=== PATIENT | female | born 1950 | race Caucasian/White ===

== ENCOUNTER 2017-10-09 17:38 | Emergency (ER) | payer OTHER ==
[~2017-10-09] VITALS: Ht 162.6 cm; Wt 88.9 kg
[~2017-10-09 17:38] MED LIST: AMIT25 PO; ASPI325; ASPI325 PO; ATOR40TA PO; BUDE6HFA INH; CHOL10002 PO; ESCI10 PO; ESCI20 PO; HYDR1TAB94 PO; MULTI VITAMIN1 EACH PO; OMEPRAZOLE MAGN20 MG PO; VENL75ER PO; VITAMIN B122500 MC1 PO
[2017-10-09 18:32] LABS: BASOPHILS ABSOLUTE AUTO 0.06 K/mm3 (0.00-0.23); BASOPHILS PERCENT AUTO 1 % (0-2); EOSINOPHILS ABSOLUTE AUTO 0.07 K/mm3 (0.00-0.68); EOSINOPHILS PERCENT AUTO 1 % (0-6); Hematocrit 43.1 % (33.0-51.0); IMMATURE GRAN ABSOLUTE AUTO 0.06 K/mm3 (0.00-0.10); IMMATURE GRAN PERCENT AUTO 1 % (0-1); LYMPHOCYTES PERCENT AUTO 29 % (21-46); MONOCYTES ABSOLUTE AUTO 0.61 K/mm3 (0.16-1.47); MONOCYTES PERCENT AUTO 6 % (4-13); Mean Corpuscular HGB 30.4 pg (26.0-34.0); Mean Corpuscular HGB Conc 32.5 g/dL (31.5-36.5); Mean Corpuscular Volume 94 fL (80-100); Mean Platelet Volume 9.8 fL (9.1-12.4); NEUTROPHILS ABSOLUTE AUTO 5.96 K/mm3 (1.96-9.15); NEUTROPHILS PERCENT AUTO 62 % (41-73); Platelet Count 279 K/mm3 (150-400); RDW Coefficient Variation 13.6 % (11.7-14.2); RDW Standard Deviation 46.7 fL (35.1-46.3); White Blood Cell Count 9.56 K/mm3 (4.00-11.30)
[2017-10-09 18:49] LABS: Alanine Aminotransfer (ALT/SGP 40 U/L (12-78); Albumin, Blood 3.4 g/dL (3.4-5.0); Albumin/Globulin Ratio 0.9 (0.8-1.8); Alk Phos 100 U/L (50-136); Anion Gap 8 mmol/L (6-16); Aspartate Aminotrans (AST/SGOT 18 U/L (12-37); Bilirubin, Total 0.3 mg/dL (0.1-1.0); Blood Urea Nitrogen 11 mg/dL (8-24); CO2, Blood 27 mmol/L (21-32); Calcium, Blood 8.9 mg/dL (8.5-10.1); Chloride, Blood 106 mmol/L (98-108); Creatinine, Blood 0.78 mg/dL (0.40-1.00); Globulin, Blood 3.6 g/dL (2.2-4.0); Glomerular Filtration Rate >60 (60-); Glucose, Blood 138 mg/dL (70-99); Potassium, Blood 4.1 mmol/L (3.5-5.5); Sodium, Blood 141 mmol/L (136-145)
[2017-10-09 20:00] LABS: Source, Urine Clean Catch
[2017-10-09 20:03] LABS: Appearance, Urine Clear (Clear); Bilirubin, Urine Neg (Neg); Blood, Urine 1+ (Neg); Color, Urine Yellow (P-Yellow); Glucose Qualitative, Urine Neg (Neg); Ketones, Urine Neg (Neg); Leukocyte Esterase, Urine 1+ (Neg); Nitrite, Urine Neg (Neg); Protein, Urine Neg (Neg); Urobilinogen, Urine NORM (Normal)
[2017-10-09] MEDS ORDERED: ALBU90OI INH (20:08)
[2017-10-09] MEDS ORDERED: Norco 5-325 Ta1 EACH PO (20:08)
[2017-10-09 20:29] LABS: Bacteria Many /hpf; Red Blood Cells, Urine 0-2 /hpf (0-2); Squamous Epithelial Cells Not Seen /hpf (Few)
[2017-10-12] MEDS ORDERED: CEPH500 PO (08:02)
== END 2017-10-09 20:33 | disposition home or self-care (01) ==
LOC: ER 17:38
PROVIDERS: Emergency Medicine
DX: R10.12 Left upper quadrant pain (principal); R91.1 Solitary pulmonary nodule; J44.9 Chronic obstructive pulmonary disease, unspecified; E78.5 Hyperlipidemia, unspecified; F17.210 Nicotine dependence, cigarettes, uncomplicated; Z90.89 Acquired absence of other organs; Z90.49 Acquired absence of other specified parts of digestive tract; Z90.710 Acquired absence of both cervix and uterus
CPT/HCPCS: 36415; 74176; 80053; 81001; 83690; 85025; 87077; 87086; 87186; 93005; 93010; 99284

== ENCOUNTER → 2018-08-21 | Outpatient (CLI) | payer MEDICARE ==
[~2018-08-21] MED LIST changes: +ALBU90OI INH; +CEPH500 PO; +Norco 5-325 Ta1 EACH PO
[2018-08-21 11:35] LABS: Source, Urine Clean Catch
[2018-08-21 12:52] LABS: Bilirubin, Urine Neg (Neg); Blood, Urine Neg (Neg); Glucose Qualitative, Urine Neg (Neg); Ketones, Urine Neg (Neg); Leukocyte Esterase, Urine Neg (Neg); Nitrite, Urine Neg (Neg); Protein, Urine Neg (Neg); Specific Gravity, Urine 1.015 (1.003-1.022); Urobilinogen, Urine NORM (Normal)
[2018-08-21 13:30] LABS: Appearance, Urine Hazy (Clear); Bacteria Few /hpf; Color, Urine Yellow (P-Yellow); Mucus Light (0-Heavy); Red Blood Cells, Urine Not Seen /hpf (0-2); Squamous Epithelial Cells Many /hpf (Few); White Blood Cells, Urine Not Seen /hpf (0-5)
== END ==
LOC: LAB 11:01 → LAB SHORT 11:01
PROVIDERS: Obstetrics & Gynecology
DX: R30.0 Dysuria (principal)
CPT/HCPCS: 81001

== ENCOUNTER → 2018-10-01 | Outpatient (CLI) | payer MEDICARE ==
[2018-10-02 14:08] LABS: HPV 16 Negative (Negative); HPV 18 Negative (Negative); HPV OTHER HR TYPES Negative (Negative)
== END | disposition home or self-care (01) ==
LOC: LAB 12:33 → LAB SHORT 12:33
PROVIDERS: Obstetrics & Gynecology Gynecology
DX: Z91.89 Other specified personal risk factors, not elsewhere classified (principal)
CPT/HCPCS: 87624; G0123

== ENCOUNTER 2018-12-17 07:22 | Day surgery (SDC) | payer MEDICARE ==
[~2018-12-17] VITALS: Ht 162.6 cm; Wt 83.0 kg
--- NOTE | 2018-12-17 07:46 | NUR ---
Ambulatory in Day Surgery History, Chart, Medications and Allergies reviewed before start of procedure.Patient confirms NPO status and agrees with scheduled surgery. Patient States Post-Procedure ride home has been arranged. Lungs clear T/O to Auscultation.
[2018-12-17] MEDS ORDERED: DESV50 PO (08:05)
[2018-12-17] MEDS ORDERED: SUMA25 PO (08:06)
[2018-12-17] MEDS ORDERED: OXYB5 PO (08:07)
[2018-12-17] MEDS ORDERED: METF500 PO (08:08)
[2018-12-17] MEDS ORDERED: DOXE10 PO (08:09)
[2018-12-17] MEDS ORDERED: VARE1 PO (08:10)
--- NOTE | 2018-12-17 09:00 | NUR ---
DRINKING WATER. TOLERATING WELL.
--- NOTE | 2018-12-17 09:08 | NUR ---
Discharge instructions reviewed with patient. Patient verbalizes understanding. Copy given to patient to take home. Patient States Post-Procedure ride home has been arranged with [facility].
== END 2018-12-17 09:20 | disposition home or self-care (01) ==
LOC: ORSCMMR 07:22 → ORD 08:30 → ORSCMMR 08:30
PROVIDERS: Internal Medicine Gastroenterology
PROC: 0DB68ZX Excision of Stomach, Via Natural or Artificial Opening Endoscopic, Diagnostic (ICD-10-PCS; principal; 2018-12-17 08:30)
PROC: 0DB48ZX Excision of Esophagogastric Junction, Via Natural or Artificial Opening Endoscopic, Diagnostic (ICD-10-PCS; principal; 2018-12-17 08:30)
PROC: 0DB58ZX Excision of Esophagus, Via Natural or Artificial Opening Endoscopic, Diagnostic (ICD-10-PCS; principal; 2018-12-17 08:30)
DX: K21.0 Gastro-esophageal reflux disease with esophagitis (principal); K44.9 Diaphragmatic hernia without obstruction or gangrene; K25.9 Gastric ulcer, unspecified as acute or chronic, without hemorrhage or perforation; K29.80 Duodenitis without bleeding; E78.00 Pure hypercholesterolemia, unspecified; E11.9 Type 2 diabetes mellitus without complications; Z86.711 Personal history of pulmonary embolism; F17.210 Nicotine dependence, cigarettes, uncomplicated; Z79.899 Other long term (current) drug therapy; Z79.82 Long term (current) use of aspirin; Z79.84 Long term (current) use of oral hypoglycemic drugs
CPT/HCPCS: 82947; 88305; 88342; J2704; J7120

== ENCOUNTER → 2019-01-23 | Outpatient (CLI) | payer MEDICARE ==
[~2019-01-23] MED LIST changes: +DESV50 PO; +DOXE10 PO; +METF500 PO; +OXYB5 PO; +SUMA25 PO; +VARE1 PO
== END | disposition home or self-care (01) ==
LOC: PLD 10:20 → LAB SHORT 10:20
DX: D48.5 Neoplasm of uncertain behavior of skin (principal)
CPT/HCPCS: 88305

== ENCOUNTER 2019-03-02 11:59 | Emergency (ER) | payer MEDICARE ==
[~2019-03-02] VITALS: Ht 162.6 cm; Wt 81.2 kg
[2019-03-02] MEDS ORDERED: HYDR1TAB94 PO (12:32)
== END 2019-03-02 12:37 | disposition home or self-care (01) ==
LOC: ER 11:59
DX: S20.212A Contusion of left front wall of thorax, initial encounter (principal); X58.XXXA Exposure to other specified factors, initial encounter; Z79.899 Other long term (current) drug therapy; Z79.82 Long term (current) use of aspirin; Z79.4 Long term (current) use of insulin; F32.9 Major depressive disorder, single episode, unspecified; E78.5 Hyperlipidemia, unspecified; E11.9 Type 2 diabetes mellitus without complications; F17.200 Nicotine dependence, unspecified, uncomplicated
CPT/HCPCS: 71101; 99283-25

== ENCOUNTER → 2019-04-17 | Outpatient (CLI) | payer MEDICARE | END | disposition home or self-care (01) | LOC: LAB SHORT 15:53 → PLD 15:53 | DX: D48.5 Neoplasm of uncertain behavior of skin (principal) | CPT/HCPCS: 88305 ==

== ENCOUNTER → 2019-07-28 | Outpatient (CLI) | payer MEDICARE | LOC: LAB EV 10:43 → LAB SHORT 10:43 | DX: N39.0 Urinary tract infection, site not specified (principal) | CPT/HCPCS: 87077; 87086; 87186 ==

== ENCOUNTER → 2020-02-04 | Outpatient (CLI) | payer MEDICARE | END | disposition home or self-care (01) | LOC: LAB SHORT 09:54 → PLD 09:54 | DX: L81.4 Other melanin hyperpigmentation (principal); D48.5 Neoplasm of uncertain behavior of skin | CPT/HCPCS: 88305 ==

== ENCOUNTER → 2020-07-01 | Outpatient (CLI) | payer MEDICARE | END | disposition home or self-care (01) | LOC: LAB SHORT 15:13 → PLD 15:13 | DX: L57.0 Actinic keratosis (principal); D48.5 Neoplasm of uncertain behavior of skin | CPT/HCPCS: 88305 ==

== ENCOUNTER 2020-08-21 19:15 | Emergency (ER) | payer MEDICARE ==
[~2020-08-21] VITALS: Ht 167.6 cm; Wt 74.8 kg
== END 2020-08-21 21:30 | disposition home or self-care (01) ==
LOC: ER 19:15
DX: R07.81 Pleurodynia (principal); R06.02 Shortness of breath; F32.9 Major depressive disorder, single episode, unspecified; E78.5 Hyperlipidemia, unspecified; E11.9 Type 2 diabetes mellitus without complications; E78.00 Pure hypercholesterolemia, unspecified; F17.200 Nicotine dependence, unspecified, uncomplicated; Z79.899 Other long term (current) drug therapy; Z79.51 Long term (current) use of inhaled steroids; Z79.82 Long term (current) use of aspirin; Z79.84 Long term (current) use of oral hypoglycemic drugs
CPT/HCPCS: 36415; 71046; 93005; 93010; 96374; 99284-25; J1885

== ENCOUNTER → 2021-02-08 | Outpatient (CLI) | payer MEDICARE, OTHER | END | disposition home or self-care (01) | LOC: LAB 11:41 → LAB SHORT 11:41 | DX: D48.5 Neoplasm of uncertain behavior of skin (principal) | CPT/HCPCS: 88305 ==

== ENCOUNTER → 2021-08-16 | Outpatient (CLI) | payer MEDICARE, OTHER | END | disposition home or self-care (01) | LOC: LAB SHORT 11:05 → LAB 11:05 | DX: D48.5 Neoplasm of uncertain behavior of skin (principal) | CPT/HCPCS: 88305 ==

== ENCOUNTER → 2022-02-14 | Outpatient (CLI) | payer MEDICARE, OTHER | END | disposition home or self-care (01) | LOC: LAB SHORT 11:07 → PLD 11:07 | DX: L57.0 Actinic keratosis (principal) | CPT/HCPCS: 88305 ==

== ENCOUNTER → 2022-08-15 | Outpatient (CLI) | payer MEDICARE, OTHER | END | disposition home or self-care (01) | LOC: LAB SHORT 11:26 | DX: D48.5 Neoplasm of uncertain behavior of skin (principal) | CPT/HCPCS: 88305 ==

== ENCOUNTER 2023-07-19 21:59 | Emergency (ER) | payer MEDICARE, OTHER ==
[~2023-07-19] VITALS: Ht 162.6 cm; Wt 78.5 kg
[2023-07-19] MEDS ORDERED: Crestor40 MG PO (22:06)
[2023-07-19] MEDS ORDERED: TRAZ50 PO (22:06)
[2023-07-19] MEDS ORDERED: CITALOPRAM HBR10 MG PO (22:07)
[2023-07-19 22:28] LABS: Hematocrit 44.8 % (33.0-51.0); Hemoglobin 14.9 g/dL (11.5-16.0); Mean Corpuscular HGB Conc 33.3 g/dL (31.5-36.5); Mean Corpuscular Volume 93 fL (80-100); Mean Platelet Volume 10.8 fL (9.1-12.4); Platelet Count 237 K/mm3 (150-400); RDW Coefficient Variation 13.6 % (11.7-14.2); RDW Standard Deviation 46.4 fL (35.1-46.3); White Blood Cell Count 9.16 K/mm3 (4.00-11.30)
[2023-07-19 22:55] LABS: Albumin, Blood 3.6 g/dL (3.4-5.0); Albumin/Globulin Ratio 1.1 (0.8-1.8); Bilirubin, Total 0.3 mg/dL (0.1-1.0); Bun/Creatinine Ratio 13.4 (12.0-20.0); Calcium, Blood 8.7 mg/dL (8.5-10.1); Creatinine, Blood 0.97 mg/dL (0.40-1.00); Globulin, Blood 3.4 g/dL (2.2-4.0); Magnesium, Blood 2.2 mg/dL (1.6-2.4); Potassium, Blood 3.9 mmol/L (3.5-5.5)
[2023-07-19 22:56] LABS: BAND PERCENT MAN 1 % (0-8); BASOPHILS PERCENT MAN 0 % (0-2); EOSINOPHILS ABSOLUTE MAN 0.09 K/mm3 (0.00-0.68); EOSINOPHILS PERCENT MAN 1 % (0-6); LYMPHOCYTES % ATYPICAL MANUAL 4 % (0-0); LYMPHOCYTES ABSOLUTE MAN 3.93 K/mm3 (0.84-5.20); LYMPHOCYTES PERCENT MAN 39 % (21-46); MONOCYTES ABSOLUTE MAN 0.64 K/mm3 (0.16-1.47); MONOCYTES PERCENT MAN 7 % (4-13); NEUTROPHILS ABSOLUTE MAN 4.48 K/mm3 (1.96-9.15); SEG NEUTROPHILS PERCENT MAN 48 % (41-73); TOTAL CELLS COUNTED 100
[2023-07-20 00:58] VITALS: BP 129/86
== END 2023-07-20 00:58 | disposition home or self-care (01) ==
LOC: ER 21:59
PROVIDERS: Student in an Organized Health Care Education/Training Program
DX: R07.9 Chest pain, unspecified (principal); Z79.899 Other long term (current) drug therapy; E78.5 Hyperlipidemia, unspecified; E11.9 Type 2 diabetes mellitus without complications; E78.00 Pure hypercholesterolemia, unspecified; F17.200 Nicotine dependence, unspecified, uncomplicated
CPT/HCPCS: 71046; 80053; 83735; 84484; 85025; 93005; 93010; 99285-25

== ENCOUNTER → 2023-07-24 | Outpatient (CLI) | payer MEDICARE, OTHER ==
[~2023-07-24] MED LIST changes: +CITALOPRAM HBR10 MG PO; +Crestor40 MG PO; +TRAZ50 PO
[2023-07-24 17:43] LABS: Source, Urine Clean Catch
[2023-07-24 19:08] LABS: Appearance, Urine Clear (Clear); Bilirubin, Urine Neg (Neg); Blood, Urine 1+ (Neg); Color, Urine Yellow (P-Yellow); Glucose Qualitative, Urine Neg (Neg); Ketones, Urine Neg (Neg); Leukocyte Esterase, Urine 1+ (Neg); Nitrite, Urine Neg (Neg); Protein, Urine Neg (Neg); Urobilinogen, Urine NORM (Normal)
[2023-07-24 19:22] LABS: Bacteria Few /hpf; Squamous Epithelial Cells Few /hpf (Few)
== END ==
LOC: LAB SHORT 17:40 → LAB 17:40
PROVIDERS: Nurse Practitioner Family
DX: R30.0 Dysuria (principal)
CPT/HCPCS: 81001; 87077; 87086; 87186

== ENCOUNTER → 2023-08-16 | Outpatient (CLI) | payer MEDICARE, OTHER | LOC: LAB SHORT 11:56 → PLD 11:56 | DX: D48.5 Neoplasm of uncertain behavior of skin (principal) | CPT/HCPCS: 88305 ==

== ENCOUNTER → 2023-12-20 | Outpatient (CLI) | payer MEDICARE, OTHER | END | disposition home or self-care (01) | LOC: LAB SHORT 17:56 | DX: R30.0 Dysuria (principal); R31.29 Other microscopic hematuria | CPT/HCPCS: 87086 ==

== ENCOUNTER 2024-08-26 09:17 | Emergency (ER) | payer MEDICARE, OTHER ==
[~2024-08-26] VITALS: Ht 162.6 cm; Wt 77.6 kg
[2024-08-26] MEDS ORDERED: OLME5TAB PO (09:27)
[2024-08-26] MEDS ORDERED: FLUTICASONE-SA1 EAC1 (09:28)
[2024-08-26] MEDS ORDERED: METF500 PO (09:28)
[2024-08-26] MEDS ORDERED: DULO60 PO (09:28)
[2024-08-26] MEDS ORDERED: BUDESONIDE-FO10.2 G2 INH (09:29)
[2024-08-26] MEDS ORDERED: ALBU90OI INH (09:29)
[2024-08-26] MEDS ORDERED: Ketorolac Tromethamine 15mg Vial IV ONE (09:35)
[2024-08-26] MEDS ORDERED: Acetaminophen 500 MG Tab PO ONE (09:35)
[2024-08-26 09:55] LABS: BASOPHILS ABSOLUTE AUTO 0.06 K/mm3 (0.00-0.23); BASOPHILS PERCENT AUTO 1 % (0-2); EOSINOPHILS ABSOLUTE AUTO 0.09 K/mm3 (0.00-0.68); EOSINOPHILS PERCENT AUTO 1 % (0-6); Hematocrit 48.3 % (33.0-51.0); Hemoglobin 15.7 g/dL (11.5-16.0); IMMATURE GRAN ABSOLUTE AUTO 0.02 K/mm3 (0.00-0.10); IMMATURE GRAN PERCENT AUTO 0 % (0-1); LYMPHOCYTES ABSOLUTE AUTO 2.25 K/mm3 (0.84-5.20); LYMPHOCYTES PERCENT AUTO 36 % (21-46); MONOCYTES ABSOLUTE AUTO 0.45 K/mm3 (0.16-1.47); MONOCYTES PERCENT AUTO 7 % (4-13); Mean Corpuscular HGB Conc 32.5 g/dL (31.5-36.5); Mean Corpuscular Volume 95 fL (80-100); Mean Platelet Volume 10.2 fL (9.1-12.4); NEUTROPHILS ABSOLUTE AUTO 3.35 K/mm3 (1.96-9.15); NEUTROPHILS PERCENT AUTO 54 % (41-73); Platelet Count 239 K/mm3 (150-400); RDW Coefficient Variation 13.4 % (11.7-14.2); RDW Standard Deviation 47.5 fL (35.1-46.3); Red Blood Cell Count 5.07 M/mm3 (3.80-5.20); White Blood Cell Count 6.22 K/mm3 (4.00-11.30)
[2024-08-26 10:17] LABS: Magnesium, Blood 2.3 mg/dL (1.6-2.4)
[2024-08-26 10:18] LABS: Bun/Creatinine Ratio 12.5 (12.0-20.0); Calcium, Blood 8.7 mg/dL (8.5-10.1); Creatinine, Blood 0.64 mg/dL (0.40-1.00); Potassium, Blood 4.5 mmol/L (3.5-5.5)
[2024-08-26] MEDS ORDERED: ACET500 PO (11:34)
[2024-08-26] MEDS ORDERED: LIDO700A20 TOP (11:34)
[2024-08-26 12:00] VITALS: BP 129/61
== END 2024-08-26 12:10 | disposition home or self-care (01) ==
LOC: ER 09:17
PROVIDERS: Emergency Medicine
DX: M54.2 Cervicalgia (principal); E78.5 Hyperlipidemia, unspecified; E11.9 Type 2 diabetes mellitus without complications; E78.00 Pure hypercholesterolemia, unspecified; F17.200 Nicotine dependence, unspecified, uncomplicated; Z79.51 Long term (current) use of inhaled steroids; Z79.899 Other long term (current) drug therapy
CPT/HCPCS: 71045; 80048; 83735; 84484; 85025; 85379; 93005; 93010; 96374; 99284-25; A9270; J1885

== ENCOUNTER 2025-04-09 20:31 | Emergency (ER) | payer MEDICARE, OTHER ==
[~2025-04-09] VITALS: Ht 162.6 cm; Wt 74.8 kg
[~2025-04-09 20:31] MED LIST changes: +ACET500 PO; +BUDESONIDE-FO10.2 G2 INH; +DULO60 PO; +Flonase 0.05% N16 GM; +LIDO700A20 TOP; +METF500C PO; +OLME5TAB PO
[2025-04-09 22:42] VITALS: BP 119/62
== END 2025-04-09 22:50 | disposition home or self-care (01) ==
LOC: ER 20:31
DX: S81.811A Laceration without foreign body, right lower leg, initial encounter (principal); K21.9 Gastro-esophageal reflux disease without esophagitis; J44.9 Chronic obstructive pulmonary disease, unspecified; E11.9 Type 2 diabetes mellitus without complications; E78.5 Hyperlipidemia, unspecified; F17.200 Nicotine dependence, unspecified, uncomplicated; W18.30XA Fall on same level, unspecified, initial encounter; Z79.84 Long term (current) use of oral hypoglycemic drugs; Z79.51 Long term (current) use of inhaled steroids
CPT/HCPCS: 12001; 70450; 72070; 73590; 90471; 90715; 99284-25; A9270

== ENCOUNTER 2025-04-14 13:53 | Inpatient (IN) | payer MEDICARE, OTHER ==
[~2025-04-14] VITALS: Ht 162.6 cm; Wt 84.0 kg
[2025-04-14] VITALS (15 sets, daily range): BP systolic 87–109; BP diastolic 31–65
[2025-04-14] MEDS ORDERED: Clindamycin 600mg in D5W 50 ML IV ONE (14:55)
[2025-04-14] MEDS ORDERED: NS 1,000 ML IV SCH (14:55)
[2025-04-14] MEDS ORDERED: FentaNYL Citrate 50 MCG/ML 2 ML Injection IV ONE (14:55)
[2025-04-14] MEDS ORDERED: Piperacillin/Tazobactam Sod 3.375 GM in NS 100 ML IV ONE (14:55)
[2025-04-14 14:59] LABS: BASOPHILS ABSOLUTE AUTO 0.06 K/mm3 (0.00-0.23); BASOPHILS PERCENT AUTO 1 % (0-2); EOSINOPHILS ABSOLUTE AUTO 0.09 K/mm3 (0.00-0.68); EOSINOPHILS PERCENT AUTO 1 % (0-6); Hematocrit 44.9 % (33.0-51.0); Hemoglobin 14.8 g/dL (11.5-16.0); IMMATURE GRAN ABSOLUTE AUTO 0.04 K/mm3 (0.00-0.10); IMMATURE GRAN PERCENT AUTO 1 % (0-1); LYMPHOCYTES ABSOLUTE AUTO 1.33 K/mm3 (0.84-5.20); LYMPHOCYTES PERCENT AUTO 16 % (21-46); MONOCYTES ABSOLUTE AUTO 1.00 K/mm3 (0.16-1.47); MONOCYTES PERCENT AUTO 12 % (4-13); Mean Corpuscular HGB Conc 33.0 g/dL (31.5-36.5); Mean Corpuscular Volume 93 fL (80-100); NEUTROPHILS ABSOLUTE AUTO 5.66 K/mm3 (1.96-9.15); NEUTROPHILS PERCENT AUTO 69 % (41-73); NRBC ABSOLUTE 0.00 K/mm3 (0.00-0.02); NRBC Auto 0.0 /100 WBC (0.0-0.2); Platelet Count 269 K/mm3 (150-400); RDW Coefficient Variation 13.5 % (11.7-14.2); RDW Standard Deviation 46.6 fL (35.1-46.3)
[2025-04-14 15:10] LABS: Alanine Aminotransfer (ALT/SGP 35.0 U/L (12-78); Albumin, Blood 2.9 g/dL (3.4-5.0); Albumin/Globulin Ratio 0.7 (0.8-1.8); Anion Gap 7.0 mmol/L (3-11); Aspartate Aminotrans (AST/SGOT 24.0 U/L (12-37); Bilirubin, Total 0.6 mg/dL (0.1-1.0); Blood Urea Nitrogen 15.0 mg/dL (8-24); CO2, Blood 30.0 mmol/L (21-32); Calcium, Blood 8.9 mg/dL (8.5-10.1); Chloride, Blood 100.0 mmol/L (98-108); Creatinine, Blood 0.72 mg/dL (0.40-1.00); Globulin, Blood 4.4 g/dL (2.2-4.0); Glucose, Blood 106.0 mg/dL (70-99); Potassium, Blood 4.0 mmol/L (3.5-5.5); Sodium, Blood 133.0 mmol/L (136-145); Total Protein, Blood 7.3 g/dL (6.4-8.2)
[2025-04-14] MEDS ORDERED: FentaNYL Citrate 50 MCG/ML 2 ML Injection IV PRN ×3 (17:25→21:55)
[2025-04-14] MEDS ORDERED: Vancomycin (Pharmacy Consult) IV SCH (17:25)
[2025-04-14] MEDS ORDERED: Ondansetron HCl 2 MG / ML 2ML Vial IV PRN ×2 (17:25→21:55)
[2025-04-14] MEDS ORDERED: Albuterol 2.5 MG/3 ML VIAL INH PRN (17:25)
[2025-04-14] MEDS ORDERED: Insulin Human Lispro 100 Units/ML 3ML Syringe SC SCH (18:00)
[2025-04-14] MEDS ORDERED: Formoterol/Mometasone MDI 5/200 mcg 13 GM INH SCH (19:00)
[2025-04-14] MEDS ORDERED: ESTRADIOL42.5 GM VAG (19:07)
[2025-04-14] MEDS ORDERED: Lactobacil 2-S.Thermo-Bifido 1 1 Cap PO SCH (21:00)
[2025-04-14] MEDS ORDERED: FentaNYL Citrate 50 MCG/ML 2 ML Injection ONE (21:19)
[2025-04-14] MEDS ORDERED: HYDROmorphone HCl/Pf 1MG SYR IV PRN ×2 (21:50)
[2025-04-14] MEDS ORDERED: Piperacillin/Tazobactam Sod 3.375 GM in NS 100 ML IV SCH (22:00)
[2025-04-15] VITALS (13 sets, daily range): BP systolic 86–98; BP diastolic 43–68
[2025-04-15] MEDS ORDERED: Clindamycin 900mg in D5W 50ML 50 ML IV SCH
[2025-04-15 04:24] LABS: BASOPHILS ABSOLUTE AUTO 0.06 K/mm3 (0.00-0.23); BASOPHILS PERCENT AUTO 1 % (0-2); EOSINOPHILS ABSOLUTE AUTO 0.19 K/mm3 (0.00-0.68); EOSINOPHILS PERCENT AUTO 2 % (0-6); Hematocrit 40.5 % (33.0-51.0); Hemoglobin 12.9 g/dL (11.5-16.0); IMMATURE GRAN ABSOLUTE AUTO 0.06 K/mm3 (0.00-0.10); IMMATURE GRAN PERCENT AUTO 1 % (0-1); LYMPHOCYTES ABSOLUTE AUTO 1.56 K/mm3 (0.84-5.20); LYMPHOCYTES PERCENT AUTO 19 % (21-46); MONOCYTES ABSOLUTE AUTO 1.03 K/mm3 (0.16-1.47); MONOCYTES PERCENT AUTO 13 % (4-13); Mean Corpuscular HGB Conc 31.9 g/dL (31.5-36.5); NEUTROPHILS ABSOLUTE AUTO 5.33 K/mm3 (1.96-9.15); NEUTROPHILS PERCENT AUTO 65 % (41-73); NRBC ABSOLUTE 0.00 K/mm3 (0.00-0.02); NRBC Auto 0.0 /100 WBC (0.0-0.2); Platelet Count 212 K/mm3 (150-400); RDW Coefficient Variation 13.8 % (11.7-14.2); RDW Standard Deviation 49.9 fL (35.1-46.3)
[2025-04-15 04:25] LABS: Mean Corpuscular Volume 98 fL (80-100)
[2025-04-15 04:42] LABS: Alanine Aminotransfer (ALT/SGP 22.0 U/L (12-78); Albumin, Blood 2.0 g/dL (3.4-5.0); Albumin/Globulin Ratio 0.5 (0.8-1.8); Anion Gap 6.0 mmol/L (3-11); Aspartate Aminotrans (AST/SGOT 20.0 U/L (12-37); Bilirubin, Total 0.4 mg/dL (0.1-1.0); Blood Urea Nitrogen 11.0 mg/dL (8-24); CO2, Blood 25.0 mmol/L (21-32); Calcium, Blood 7.7 mg/dL (8.5-10.1); Chloride, Blood 110.0 mmol/L (98-108); Creatinine, Blood 0.6 mg/dL (0.40-1.00); Globulin, Blood 3.7 g/dL (2.2-4.0); Glucose, Blood 80.0 mg/dL (70-99); Potassium, Blood 4.8 mmol/L (3.5-5.5); Sodium, Blood 136.0 mmol/L (136-145); Total Protein, Blood 5.7 g/dL (6.4-8.2)
--- NOTE | 2025-04-15 07:26 | NUR ---
SHIFT SUMMARY PT IS A&O X4, TO ABLE TO MAKE NEEDS KNOWN, MOVING ALL EXTREMITIES WITH PURPOSE/ RLE PAINFUL WITH MOVEMENT, REPOSITIONING SELF IN BED, EDUCATED PT TO CALL BEFORE GETTING OUT OF BED. CONTINUOUS SPO2, SPO2 GREATER THAN 90% ON 2L 02 VIA NC SINCE RETURNING FROM PROCEDURE @ APPROX 2250/ WAS ON ROOM AIR, LUNGS SOUND CRACKLY T/O, NO SIGNS OF RESPIRATORY DISTRESS NOTED, PT DENIES SOB. CONTINUOUS TELE MONITORING, SINUS 60-80 S, BP SOFT WITH SBP RANGING 100-80 S AND MAP RANGING 60-70 S- MD NOTIFIED/ PT ASYMPTOMATIC, CAP WNL, PULSES PRESENT T/O, PT DENIES CHEST P/P T/O THIS SHIFT. BOWEL TONES PRESENT IN ALL 4Q, PT DENIES FEELINGS OF NAUSEA, OR CONSTIPATION. PT WENT TO PROCEDURE FOR I&D @ APPROX 2049, RETUNED TO ROOM @ APPROX 2250, WOUND VAC PLACED TO RLE, RIGHT TOES CAP REFILL WNL AND ARE WARM. BED LOWEST POSITION, CALL LIGHT IN REACH, AWAITING TO GIVE REPORT TO ONCOMING RN
[2025-04-15] MEDS ORDERED: Insulin Human Lispro 100 Units/ML 3ML Syringe SC SCH (07:30)
[2025-04-15] MEDS ORDERED: NS 500 ML IV ONE (09:40)
--- NOTE | 2025-04-15 09:50 | NUR ---
UPDATE: BLOOD PRESSURE HYPOTENSIVE. PROVIDER NOTIFIED OF BLOOD PRESSURE AND PT FEELING DIZZY AND NAUSIOUS. VERBAL ORDER FOR 500ML BOULS OF SALINE AND 5MG MIDODRINE TID WITH FIRST DOSE NOW.
[2025-04-15] MEDS ORDERED: Fluticasone 0.05% Nasal Spray PRN (11:05)
[2025-04-15] MEDS ORDERED: Heparin Sodium,Porcine 5,000 UNIT/0.5 ML SDV SC SCH (16:00)
--- NOTE | 2025-04-15 17:59 | NUR ---
SHIFT SUMMARY: PT A&OX4. FOLLOWS COMMANDS AND ANSWERS QUESTIONS APPROPRIATELY. PT HAS NOT GOTTEN OUT OF BED TODAY BUT HAS BEEN ABLE TO REPOSITION HERSELF IN BED. BLOOD PRESSURE HAS BEEN HYPOTENSIVE. MIDODRINE WAS STARTED TODAY. WOUND VAC REMAINS IN PLACE AND IS NOT DRAINING MUCH FLUID. DENIES ANY COMPLAINTS OF CP, PRESSURE TIGHTNESS OR SOB. PT HAS NOT RECIEVED ANY PAIN MEDS TODAY DUE TO BLOOD PRESSURE PUT REPORTS RELIEF IN PAIN WITH COOL THERAPY. PT HAS BEEN ABLE TO TOLERATE PO INTAKE. NO IMPROVEMENT IN BLOOD PRESSURE TODAY. PROVIDER AWARE. NO OTHER SIGNIFICANT EVENTS HAPPENED DURING THIS SHIFT. WILL CONTINUE TO CARE FOR PT TILL END OF SHIFT.
[2025-04-16] VITALS (9 sets, daily range): BP systolic 94–122; BP diastolic 52–81
[2025-04-16 03:44] LABS: BASOPHILS ABSOLUTE AUTO 0.07 K/mm3 (0.00-0.23); BASOPHILS PERCENT AUTO 1 % (0-2); EOSINOPHILS ABSOLUTE AUTO 0.21 K/mm3 (0.00-0.68); EOSINOPHILS PERCENT AUTO 3 % (0-6); Hematocrit 36.2 % (33.0-51.0); Hemoglobin 11.5 g/dL (11.5-16.0); IMMATURE GRAN ABSOLUTE AUTO 0.04 K/mm3 (0.00-0.10); IMMATURE GRAN PERCENT AUTO 1 % (0-1); LYMPHOCYTES ABSOLUTE AUTO 2.21 K/mm3 (0.84-5.20); LYMPHOCYTES PERCENT AUTO 34 % (21-46); MONOCYTES ABSOLUTE AUTO 0.76 K/mm3 (0.16-1.47); MONOCYTES PERCENT AUTO 12 % (4-13); Mean Corpuscular HGB Conc 31.8 g/dL (31.5-36.5); Mean Corpuscular Volume 97 fL (80-100); NEUTROPHILS ABSOLUTE AUTO 3.13 K/mm3 (1.96-9.15); NEUTROPHILS PERCENT AUTO 49 % (41-73); NRBC ABSOLUTE 0.00 K/mm3 (0.00-0.02); NRBC Auto 0.0 /100 WBC (0.0-0.2); Platelet Count 241 K/mm3 (150-400); RDW Coefficient Variation 13.8 % (11.7-14.2); RDW Standard Deviation 49.3 fL (35.1-46.3)
--- NOTE | 2025-04-16 04:51 | NUR ---
SHIFT SUMMARY THIS RN ASSUMED CARE OF PATIENT AT 1900. PT A&O X4. CALLING APPROPRIATELY. PT WAS ABLE TO TOLERATE GETTING UP TO THE CHAIR. WOUND VAC TO RLE. PT ABLE TO REPOSITION SELF IN BED. BP STABLE WITH MAP >65 DURING THIS SHIFT, SBP 90 s MOST OF THE SHIFT. SB/SR ON MONITOR. AFEBRILE. ON RA WHILE AWAKE, NEEDING 2L VIA NC TO MAINTAIN SPO2 WHILE SLEEPING. NOTED DESATTING TO THE 80 S WHILE SLEEPING. LR INFUSING PER EMAR. BED IN LOWEST POSITION AND CALL LIGHT WITHIN REACH. THIS RN WILL REPORT TO ONCOMING DAYSHIFT RN.
[2025-04-16 06:55] LABS: Anion Gap 7.0 mmol/L (3-11); Blood Urea Nitrogen 10.0 mg/dL (8-24); CO2, Blood 26.0 mmol/L (21-32); Calcium, Blood 7.8 mg/dL (8.5-10.1); Chloride, Blood 111.0 mmol/L (98-108); Creatinine, Blood 0.62 mg/dL (0.40-1.00); Glucose, Blood 93.0 mg/dL (70-99); Potassium, Blood 4.1 mmol/L (3.5-5.5); Sodium, Blood 140.0 mmol/L (136-145)
[2025-04-16 07:44] LABS: Vancomycin, Trough 16.2 ug/mL (5.0-10.0)
[2025-04-16] MEDS ORDERED: DULoxetine HCL 60 MG Capsule DR PO SCH (09:00)
--- NOTE | 2025-04-16 17:34 | NUR ---
End of Shift Pt A&O x4. VSS. Spo2 > 92% on RA. Monitor showing SB-SR, HR 50s-60s. BP improved. RLE wound vac changed by MD Ambrose this shift. Pt denying need for pain medication t/o shift. Pt out of bed w/ SBA, GB & FWW, tolerating well.
[2025-04-17] VITALS (7 sets, daily range): BP systolic 98–127; BP diastolic 47–78
--- NOTE | 2025-04-17 04:59 | NUR ---
SHIFT SUMMARY THIS RN ASSUMED CARE OF PATIENT AT 1900. PT A&O X4. CALLING APPROPRIATELY. BP STABLE WITH SBP 100-110 S. SB/SR ON MONITOR. AFEBRILE. ON RA WHILE AWAKE, NEEDING 1-2L VIA NC TO MAINTAIN SPO2 WHILE SLEEPING. NOTED DESATTING TO THE 80 S WHILE SLEEPING. LR INFUSING PER EMAR. WOUND VAC TO RLE. DRESSING WAS CHANGED DURING DAYSHIFT 04/16. PT ABLE TO REPOSITION SELF IN BED INDEPENDENTLY. PUREWICK IN PLACE. PT DENIES PAIN. BED IN LOWEST POSITION AND CALL LIGHT WITHIN REACH. THIS RN WILL REPORT TO ONCOMING DAYSHIFT RN.
--- NOTE | 2025-04-17 17:40 | NUR ---
Medical Status / End of Shift Pt A&O x4. VSS. Spo2 > 92% on RA. Monitor showing SB-SR, HR 50s-70s prior to telemetry DC. Pt made medical no telemetry status this shift. IVF dc'd per . PIVs saline locked. Wound vac in place to RLE. Pt up to BSC & recliner chair multiple times this shift w/ pt tolerating well. Pt denying need for pain medication. Pt reporting hope to discharge home tomorrow.
--- NOTE | 2025-04-17 22:09 | NUR ---
SHIFT SUMMARY: PT A&OX4 CALM AND COOPERATIVE. SBP 120S AND HR 60S. MAINTAINING >92% ON 2L NC NOC. PT REPORTS HAVING DIARRHEA DURING DAY SHIFT. NO EPISODES OF DIARRHEA DURING ASSUMPTION OF CARE. WOUND VAC IN PLACE. RECEIVING PO ABX. SBA WITH FWW TO BSC. WICKING SYSTEM IN PLACE. REPORT GIVEN TO MEDICAL FLOOR NURSE. PT TRANSFERRED OFF UNIT TO MEDICAL AT 0950.
--- NOTE | 2025-04-18 01:45 | NUR ---
SHIFT SUMMARY/TRANSFER NOTE PT ARRIVED TO THE MED FLOOR AT 2155 IN A W/C. PT TRANSFERRED HERSELF FROM THE W/C TO THE HOSPITAL BED. PT IS SBA. PT BROUGHT ALL HER BELONINGS WITH HER. PT'S CELL PHONE CHARGED AT [facility] AND RETURNED TO THE PT. PT IS A/O X4, ABLE TO MAKE HER NEEDS KNOWN AND COOPERATIVE WITH CARE. EDUCATED BACTERIOLOGIST INDUSTRIAL LIGHT AND FALL PRECAUTIONS. WOUND VAC IN PLACE, FEMALE PUREWICK IN PLACE. PT HAS O2 DURING NOC @1L VIA NASAL CANNULA. BASELINE IS RA. NO CONCERNS OF COMPLAINTS OFFERED. PT RESTING IN BED, RR EVEN, UNLABORED. BED AT THE LOWEST POSITION, CALL LIGHT W/I REACH.
[2025-04-18 04:36] VITALS: BP 117/65
[2025-04-18 05:51] LABS: BASOPHILS ABSOLUTE AUTO 0.05 K/mm3 (0.00-0.23); BASOPHILS PERCENT AUTO 1 % (0-2); EOSINOPHILS ABSOLUTE AUTO 0.22 K/mm3 (0.00-0.68); EOSINOPHILS PERCENT AUTO 3 % (0-6); Hematocrit 35.2 % (33.0-51.0); Hemoglobin 11.3 g/dL (11.5-16.0); IMMATURE GRAN ABSOLUTE AUTO 0.15 K/mm3 (0.00-0.10); IMMATURE GRAN PERCENT AUTO 2 % (0-1); LYMPHOCYTES ABSOLUTE AUTO 2.24 K/mm3 (0.84-5.20); LYMPHOCYTES PERCENT AUTO 34 % (21-46); MONOCYTES ABSOLUTE AUTO 0.55 K/mm3 (0.16-1.47); MONOCYTES PERCENT AUTO 8 % (4-13); Mean Corpuscular HGB Conc 32.1 g/dL (31.5-36.5); Mean Corpuscular Volume 96 fL (80-100); NEUTROPHILS ABSOLUTE AUTO 3.46 K/mm3 (1.96-9.15); NEUTROPHILS PERCENT AUTO 52 % (41-73); NRBC ABSOLUTE 0.00 K/mm3 (0.00-0.02); NRBC Auto 0.0 /100 WBC (0.0-0.2); Platelet Count 319 K/mm3 (150-400); RDW Coefficient Variation 13.5 % (11.7-14.2); RDW Standard Deviation 48.0 fL (35.1-46.3)
[2025-04-18 06:20] LABS: Anion Gap 5.0 mmol/L (3-11); Blood Urea Nitrogen 7.0 mg/dL (8-24); CO2, Blood 28.0 mmol/L (21-32); Calcium, Blood 8.2 mg/dL (8.5-10.1); Chloride, Blood 111.0 mmol/L (98-108); Creatinine, Blood 0.7 mg/dL (0.40-1.00); Glucose, Blood 92.0 mg/dL (70-99); Potassium, Blood 3.9 mmol/L (3.5-5.5); Sodium, Blood 140.0 mmol/L (136-145)
[2025-04-18 07:21] VITALS: BP 112/62
[2025-04-18] MEDS ORDERED: DOXY100 PO (13:03)
--- NOTE | 2025-04-18 14:00 | NUR ---
PT DISCHARGED TO HOME WITH HOME HEALTH. DISCHARGE INSTRUCTIONS PROVIDED AND EDUCATED ON AT TIME OF DISCHARGE. MEDICATIONS FAXED TO [facility]. WOUND VAC DISCONTINUED AND CHANGED TO WET-TO-DRY DRESSING PER PHYSICAN ORDERS. ALL VALUABLES RETURNED AND SENT HOME WITH THE PT.
== END 2025-04-18 14:12 | disposition home health service (06) | DRG 853 ==
LOC: ER 13:53 → PCU 17:23 → MEDS 04-17 21:56
PROVIDERS: Internal Medicine; Nurse Practitioner Acute Care; Student in an Organized Health Care Education/Training Program; ADMIT Student in an Organized Health Care Education/Training Program
PROC: 0JBN0ZZ Excision of Right Lower Leg Subcutaneous Tissue and Fascia, Open Approach (ICD-10-PCS; 2025-04-14)
PROC: 3E03329 Introduction of Other Anti-infective into Peripheral Vein, Percutaneous Approach (ICD-10-PCS; principal; 2025-04-15)
DX: A41.9 Sepsis, unspecified organism (principal); M72.6 Necrotizing fasciitis; J44.1 Chronic obstructive pulmonary disease with (acute) exacerbation; L03.115 Cellulitis of right lower limb; L02.415 Cutaneous abscess of right lower limb; F32.A Depression, unspecified; E78.5 Hyperlipidemia, unspecified; E11.9 Type 2 diabetes mellitus without complications; K21.9 Gastro-esophageal reflux disease without esophagitis; I10 Essential (primary) hypertension; F17.210 Nicotine dependence, cigarettes, uncomplicated; F41.9 Anxiety disorder, unspecified; I95.9 Hypotension, unspecified; Z86.718 Personal history of other venous thrombosis and embolism; Z90.710 Acquired absence of both cervix and uterus; Z98.51 Tubal ligation status; Z86.711 Personal history of pulmonary embolism; Z98.890 Other specified postprocedural states; Z79.84 Long term (current) use of oral hypoglycemic drugs; Z79.51 Long term (current) use of inhaled steroids; Z79.899 Other long term (current) drug therapy
CPT/HCPCS: 36415; 73701; 80048; 80053; 80202; 82947; 83605; 85025; 86140; 87040; 87070; 87077; 87147; 87186; 87205; 93005; 93010; 94640; 94664; 94760; 94762; 96365-59; 96368; 96375; 97110; 97116; 97161; 97165; 97530; 97535; 99285-25; A9270; J1171; J1644; J2543; J2704; J3010; J3373; J7030; J7040; J7050; J7120; Q9967